=== PATIENT | male | born 1980 | race Caucasian/White ===

== ENCOUNTER 2018-07-07 13:58 | Emergency (ER) | payer MEDICAID ==
[2018-07-07] MEDS ORDERED: ONDANSETRON 4 MG/2 ML VIAL ONE (14:05)
[2018-07-07] MEDS ORDERED: ONDANSETRON 4 MG/2 ML VIAL IVP ONE (14:19)
--- NOTE | 2018-07-07 15:03 | EDPHY ---
HPI/HX/ROS/PE/MDM Narrative: CHIEF COMPLAINT: EtOH HPI: This patient is an unidentified male arriving via EMS for evaluation of possible alcohol intoxication. Patient was found largely unresponsive [place] [address] by bystanders who called EMS system. EMS reported pinpoint pupils and administered 2mg Narcan with no improvement in presentation. BGL 85. The patient vomited profusely on arrival. He is responsive to painful stimuli but otherwise unable to participate in my interview or exam. REVIEW OF SYSTEMS: Unable to obtain secondary to patient presentation. PMH: Unable to obtain. SOCIAL HISTORY: Unable to obtain. PHYSICAL EXAM: General:Patient is responsive to painful stimuli, appears intoxicated. ENT:Eyes are normal to inspection. ENT inspection normal. Neck: Normal inspection. Respiratory:No respiratory distress. Breath sounds normal bilaterally. Cardiovascular: Regular rate and rhythm. Strong peripheral pulses. Normal cap refill. Abdomen:The abdomen is nontender to palpation. There are no peritoneal signs. There are normal bowel sounds. Back: Normal to inspection. No tenderness to palpation. Skin: Normal color. No rash. Warm and dry. Extremities: Normal appearance. Full range of motion. Neuro: Responsive to painful stimuli. Normal motor function. Normal sensory function. ED Course: Approximately 29 y/o unidentified male presents with acute alcohol intoxication. IV established. Plan for labs including chemistries, EtOH. Administered 4mg IV Zofran for nausea. He has been placed on supplemental oxygen as his SpO2 was 88% on arrival. Plan to observe here in the emergency department. Reviewed laboratory studies. Chemistry panel is largely unremarkable. EtOH 247. Reassessed. Patient remains intoxicated-appearing. He is responsive to verbal stimuli. SpO2 is 100% with oxygen by nasal cannula. 17:45 Patient is now ambulatory and able to answer questions appropriately. He is able to provide identification as well. He initially admitted to the nurse that he ingested alcohol and "delicious meth", but shortly thereafter adamantly denied any recent methamphetamine use. Plan to discharge in good condition to the addiction recovery center for further assistance in his recovery. Prescription for Librium provided as the patient reports history of withdrawal seizures. Follow up and return precautions discussed. He is comfortable with this plan. - Data Points Laboratory Results: Laboratory Results 07/07/18 15:07 07/07/18 15:07 Sodium 144 mEq/L mEq/L (135-145) Potassium 3.8 mEq/L mEq/L (3.5-5.2) Chloride 112 mEq/L H mEq/L (97-110) Carbon Dioxide 21 mEq/l L mEq/l (22-31) Anion Gap 11 mEq/L mEq/L (6-14) BUN 14 mg/dL mg/dL (7-23) Creatinine 0.8 mg/dL mg/dL (0.7-1.3) Estimated GFR > 60 Glucose 90 mg/dL mg/dL (70-100) Calcium 8.5 mg/dL mg/dL (8.5-10.4) Ethyl Alcohol 247 mg/dL H mg/dL (0-10) Medications Given: Discontinued Medications Ondansetron HCl (Zofran) 4 mg IVP EDNOW ONE Stop: 07/07/18 14:20 Last Admin: 07/07/18 14:19 Dose: 4 mg General Time Seen by Provider: 07/07/18 14:47 Initial Vital Signs: Initial Vital Signs O2 Sat (%) 100 07/07/18 14:10 O2 Delivery Mode Room Air O2 (L/minute) 2 Allergies/Adverse Reactions: Unable to Assess Allergy (Unverified 07/07/18 14:16) Home Medications: Medication Instructions Recorded Unobtainable 07/07/18 Departure - Departure Disposition: Home, Routine, Self-Care Clinical Impression: Alcoholic intoxication Qualifiers: Complication of substance-induced condition: uncomplicated Qualified Code(s): F10.920 - Alcohol use, unspecified with intoxication, uncomplicated Condition: Fair Instructions: Alcohol Intoxication (ED) Additional Instructions: Please refrain from abusing alcohol. Return to the emergency department for fever, vomiting, confusion, headache, abdominal pain or other worsening of condition. Please proceed to the [facility] for assistance in alcohol recovery. Follow up with your primary care provider for further concerns. Referrals: [facility] Detox 24 Hours [Outside] - As per Instructions Report Scribed for: Bayron Aaron Report Scribed by: Nicole Strauss Date of Report: 07/07/18 Time of Report: 15:03 Physician Review and Approval Statement: Portions of this note were transcribed by an ED scribe. I personally performed the history, physical exam, and medical decision making; and confirm the accuracy of the information in the transcribed note.
[2018-07-07 17:59] VITALS: BP 118/95
[2018-07-07] MEDS: CHLORDIAZEPOXIDE 25MG PREPK#6 BTL TAKEHOME ONE ×2 (18:04→18:18)
== END 2018-07-07 18:42 | disposition home or self-care (01) ==
LOC: EDBD 13:58
DX: F10.920 Alcohol use, unspecified with intoxication, uncomplicated (principal)
CPT/HCPCS: 96374; G0480; J2405